=== PATIENT | female | born 1980 | race Caucasian/White ===

== ENCOUNTER → 2018-01-11 | Outpatient (CLI) | payer OTHER ==
[2018-01-11 14:52] LABS: HEPATITIS B SURFACE ANTIGEN NEGATIVE (NEGATIVE); HIV 1&2 SCREEN CENTAUR NEGATIVE (NEGATIVE)
[2018-01-11 14:52] LABS: HEPATITIS C VIRUS ABY INDEX 0.1 INDEX (<0.8)
== END ==
LOC: M SMT 11:47
DX: Z34.83 Encounter for supervision of other normal pregnancy, third trimester (principal)
CPT/HCPCS: 87340

== ENCOUNTER → 2018-01-14 | Outpatient (CLI) | payer OTHER ==
[2018-01-14 08:28] LABS: GLUCOSE, FASTING 79 MG/DL (LESS THAN 95)
[2018-01-14 09:46] LABS: 1 HR GLUCOSE 146 MG/DL (LESS THAN 180)
[2018-01-14 11:25] LABS: 2 HR GLUCOSE 102 MG/DL (LESS THAN 155)
[2018-01-14 12:21] LABS: 3 HR GLUCOSE 116 MG/DL (LESS THAN 140)
== END ==
LOC: M LAB 07:33
DX: Z34.83 Encounter for supervision of other normal pregnancy, third trimester (principal); Z3A.00 Weeks of gestation of pregnancy not specified
CPT/HCPCS: 82951

== ENCOUNTER → 2018-01-15 | Outpatient (CLI) | payer OTHER | LOC: M RAD 08:58 | DX: O36.5933 Maternal care for other known or suspected poor fetal growth, third trimester, fetus 3 (principal); O26.833 Pregnancy related renal disease, third trimester; Z3A.32 32 weeks gestation of pregnancy | CPT/HCPCS: 76820 ==

== ENCOUNTER → 2018-02-19 | Outpatient (CLI) | payer OTHER | LOC: M RAD 10:09 | DX: O26.843 Uterine size-date discrepancy, third trimester (principal); Z3A.36 36 weeks gestation of pregnancy | CPT/HCPCS: 76816 ==

== ENCOUNTER → 2018-02-22 | Outpatient (REF) | payer OTHER | LOC: M LAB REF 13:24 | DX: Z34.83 Encounter for supervision of other normal pregnancy, third trimester (principal); Z3A.00 Weeks of gestation of pregnancy not specified ==

== ENCOUNTER 2018-03-11 05:04 | Inpatient (IN) | payer OTHER ==
[2018-03-11] MEDS ORDERED: ceFAZolin 2 GM/D5W 50 ML IV BAG (J0690 PER 500MG) As Ordered (06:11)
[2018-03-11] MEDS: LR 1,000 ML IV (06:38)
[2018-03-11] MEDS: LR 800 ML IV (06:38)
[2018-03-11] MEDS: BICITRA 30ML SOLN UDC PO (07:15)
[2018-03-11] MEDS ORDERED: NALBUPHINE HCL 10 MG/ML AMP (J2300) IV ×2 (07:37→10:00)
[2018-03-11] MEDS ORDERED: ONDANSETRON 4MG/2ML VIAL (J2405) IV ×2 (07:37→10:00)
[2018-03-11] MEDS ORDERED: NALOXONE INJ 0.4 MG/1 ML VIAL (J2310) IV ×2 (07:37)
[2018-03-11] MEDS ORDERED: KETOROLAC 30 MG/ML VIAL (J1885) (09:30)
[2018-03-11] MEDS ORDERED: MORPHINE PRES-FREE INJ 10 MG/10 ML VIAL (J2274) (09:30)
[2018-03-11] MEDS ORDERED: ONDANSETRON 4MG/2ML VIAL (J2405) (09:30)
[2018-03-11] MEDS ORDERED: OXYTOCIN INJ 10 UNITS/ML VIAL (J2590) (09:30)
[2018-03-11] MEDS ORDERED: OXYTOCIN 30 UNITS IN 0.9% NaCl 500ML IV BAG (J2590) (09:30)
[2018-03-11] MEDS ORDERED: PHENYLephrine HCL 500 MCG/5 ML (100MCG/ML) SYRINGE (J2370) (09:30)
[2018-03-11] MEDS ORDERED: ePHEDrine SULFATE 25 MG/5 ML(5MG/ML) SYRINGE (09:30)
[2018-03-11] MEDS ORDERED: KETOROLAC 30 MG/ML VIAL (J1885) IV (10:00)
[2018-03-11] MEDS ORDERED: fentaNYL 100 MCG/2 ML INJECTION (J3010) IV (10:00)
[2018-03-11] MEDS: OXYTOCIN DRIP 30 UNITS in APPROPRIATE DILUENT 1 EA IV (10:02)
[2018-03-11] MEDS ORDERED: DOCUSATE SODIUM 100 MG CAP PO (10:15)
[2018-03-11] MEDS: ONDANSETRON 4MG/2ML VIAL (J2405) IV (11:20)
[2018-03-11] MEDS: METOCLOPRAMIDE INJ 10MG/2ML VIAL (J2765) IV (12:34)
[2018-03-11] MEDS: KETOROLAC 30 MG/ML VIAL (J1885) IV ×2 (16:24→21:47)
[2018-03-12] MEDS: KETOROLAC 30 MG/ML VIAL (J1885) IV (03:31)
[2018-03-12 07:10] LABS: HEMATOCRIT 29.1 % (36.0-47.0); MEAN CORPUSCULAR HEMOGLOBIN 27.2 pg (27.0-33.0); MEAN CORPUSCULAR HGB CONC 32.3 g/dl (32.0-36.5); MEAN CORPUSCULAR VOLUME 84.1 fl (80.0-96.0); PLATELET COUNT, AUTOMATED 200 10^3/uL (150-450); RED BLOOD COUNT 3.46 10^6/uL (4.00-5.40); RED CELL DISTRIBUTION WIDTH 15.8 % (11.5-14.5); WHITE BLOOD COUNT 10.4 10^3/uL (4.0-10.0)
[2018-03-12 07:18] LABS: HEMOGLOBIN 9.4 g/dl (12.0-15.5)
[2018-03-12] MEDS: PERCOCET 5MG/325MG TAB PO ×4 (07:52→21:58)
[2018-03-12] MEDS: PRENATAL VITAMINS CHEWABLE TABLET PO (07:52)
[2018-03-12] MEDS: IBUPROFEN 800 MG TAB PO ×2 (11:32→20:13)
[2018-03-12] MEDS ORDERED: PILL CRUSHER/CUTTER 1 EACH XX (20:30)
[2018-03-13] MEDS: IBUPROFEN 800 MG TAB PO ×2 (03:39→11:15)
[2018-03-13] MEDS: RHOGAM 300 MCG (1500 IU) INJ (J2790) IM (07:39)
[2018-03-13] MEDS: MEASLES,MUMPS,RUBELLA VACCINE INJ (MMR-II) (90707) SC (07:39)
[2018-03-13] MEDS: PRENATAL VITAMINS CHEWABLE TABLET PO (08:26)
[2018-03-13] MEDS: PERCOCET 5MG/325MG TAB PO (08:26)
[2018-03-13] MEDS: INFLUENZA QUADRIVALENT PF VACCINE 0.5ML SYRINGE (90686) IM (08:27)
== END 2018-03-13 11:00 | disposition home or self-care (01) | DRG 773 ==
LOC: M LDI 05:04 → M OBS 10:30
PROC: 10D00Z1 Extraction of Products of Conception, Low, Open Approach (ICD-10-PCS; principal; 2018-03-11 07:24)
DX: O34.211 Maternal care for low transverse scar from previous cesarean delivery (principal); Z3A.40 40 weeks gestation of pregnancy; Z37.0 Single live birth

== ENCOUNTER 2018-03-11 05:04 | Inpatient (IN) | payer OTHER ==
[2018-03-11 05:36] LABS: HEMATOCRIT 35.8 % (36.0-47.0); HEMOGLOBIN 11.6 g/dl (12.0-15.5); MEAN CORPUSCULAR HGB CONC 32.4 g/dl (32.0-36.5); MEAN CORPUSCULAR VOLUME 83.3 fl (80.0-96.0); PLATELET COUNT, AUTOMATED 224 10^3/uL (150-450); RED CELL DISTRIBUTION WIDTH 15.4 % (11.5-14.5); WHITE BLOOD COUNT 8.6 10^3/uL (4.0-10.0)
[2018-03-11] MEDS ORDERED: BICITRA 30ML SOLN UDC PO (07:30)
[2018-03-11] MEDS ORDERED: ONDANSETRON 4MG/2ML VIAL (J2405) As Ordered (07:56)
[2018-03-11] MEDS ORDERED: ePHEDrine SULFATE 25 MG/5 ML(5MG/ML) SYRINGE As Ordered (07:56)
[2018-03-11] MEDS ORDERED: PHENYLephrine HCL 500 MCG/5 ML (100MCG/ML) SYRINGE (J2370) As Ordered (07:56)
[2018-03-11] MEDS ORDERED: MORPHINE PRES-FREE INJ 10 MG/10 ML VIAL (J2274) As Ordered (07:56)
[2018-03-11] MEDS ORDERED: OXYTOCIN INJ 10 UNITS/ML VIAL (J2590) As Ordered (07:56)
[2018-03-11] MEDS ORDERED: OXYTOCIN 30 UNITS IN 0.9% NaCl 500ML IV BAG (J2590) As Ordered (08:34)
[2018-03-11] MEDS ORDERED: OXYTOCIN DRIP 30 UNITS in APPROPRIATE DILUENT 1 EA IV (08:42)
[2018-03-11] MEDS ORDERED: RHOGAM 300 MCG (1500 IU) INJ (J2790) IM (08:45)
[2018-03-11] MEDS ORDERED: ONDANSETRON 4MG/2ML VIAL (J2405) IV ×2 (08:45→09:30)
[2018-03-11] MEDS ORDERED: DOCUSATE SODIUM 100 MG CAP PO (08:45)
[2018-03-11] MEDS ORDERED: MEASLES,MUMPS,RUBELLA VACCINE INJ (MMR-II) (90707) SC (08:45)
[2018-03-11] MEDS ORDERED: PERCOCET 5MG/325MG TAB PO ×2 (08:45)
[2018-03-11] MEDS ORDERED: PRENATAL VITAMINS CHEWABLE TABLET PO (09:00)
[2018-03-11] MEDS ORDERED: NALBUPHINE HCL 10 MG/ML AMP (J2300) IV (09:30)
[2018-03-11] MEDS ORDERED: fentaNYL 100 MCG/2 ML INJECTION (J3010) IV (09:30)
[2018-03-11] MEDS ORDERED: KETOROLAC 30 MG/ML VIAL (J1885) IV ×2 (09:30→16:00)
[2018-03-11] MEDS ORDERED: KETOROLAC 30 MG/ML VIAL (J1885) As Ordered (09:40)
[2018-03-12] MEDS ORDERED: IBUPROFEN 800 MG TAB PO (12:00)
== END 2018-03-13 11:00 | disposition home or self-care (01) | DRG 833 ==
LOC: M LDI 05:04 → M OBS 19:55
PROVIDERS: Specialist
DX: O34.211 Maternal care for low transverse scar from previous cesarean delivery (principal)

== ENCOUNTER → 2018-11-05 | Outpatient (CLI) | payer OTHER ==
[~2018-11-05] MED LIST: ASPI81TA26 PO; IBUP-1114 PO; OXYC1TAB23 PO; PERCOCET PO; PREN1TAB14 PO; iron PO
--- NOTE | 2018-11-05 20:04 | ECHO ---
DATE OF PROCEDURE: 11/05/2018 REFERRING PHYSICIAN: Sol Han MD INDICATION: Pulmonary embolism without acute cor pulmonale. HEIGHT: 167 cm WEIGHT: 103 kg DIMENSIONS: IVS: 1.1 LV: 4.0 LVPW: 1.0 LA: 2.9 Aorta: 3.1 IVC: 1.2 Mitral E wave velocity: 79, A-wave velocity: 67 E prime septal: 8.5 E prime lateral: 13.7 FINDINGS The study is of fair technical quality corresponding to patient's body habitus. The patient is in sinus rhythm. Left ventricle is normal size and systolic function, I estimate left ventricular ejection fraction (LVEF) 65-70%. No segmental wall motion abnormalities are noted. Right ventricle also appears normal size and systolic function. Both atria appear normal. Aortic, mitral and tricuspid valves appear normal. Pulmonic valve was not well seen. No pericardial effusion is noted. Inferior vena cava is of normal size and appropriately collapses with respiration indicative of normal central venous pressure. Aortic root, aortic arch and abdominal aorta all appear normal. Doppler interrogation of aortic valve reveals no stenosis or insufficiency. There is trace mitral insufficiency and no significant tricuspid insufficiency. Consequently pulmonary artery pressure was not adequately estimated. Mitral inflow pattern and tissue Doppler imaging of mitral annulus reveal normal diastolic function. CONCLUSION 1. Study is of fair technical quality. 2. Normal left ventricle (LV) size with preserved LV systolic and diastolic function. 3. Likely normal right ventricle (RV) systolic function. 4. No significant valvular disease. 5. Normal central venous pressure. 6. Unable to estimate pulmonary artery pressure but no signs to suggest pulmonary hypertension. COMMENT Subacute bacterial endocarditis (SBE) prophylaxis is not recommended.
== END ==
LOC: M CARPUL 08:57
PROVIDERS: ATTEND Internal Medicine Pulmonary Disease
DX: I26.99 Other pulmonary embolism without acute cor pulmonale (principal)